=== PATIENT | female | born 1960 | race Caucasian/White ===

== ENCOUNTER 2018-05-21 12:23 | Emergency (ER) | payer OTHER ==
[~2018-05-21] VITALS: Ht 175.3 cm; Wt 81.6 kg
[~2018-05-21 12:23] MED LIST: ASPIR 8181 MG; FIBER1 GM; IRON325 MG; LORTAB 5-500 T1 EACH; MINOCIN100 MG; PROBIOTIC1 EACH; VITAMIN C500 M3
[2018-05-21] MEDS ORDERED: SODIUM CHLORIDE 0.9% 1000ML 1,000 ML IV STA (13:11)
[2018-05-21] MEDS ORDERED: SODIUM CHLORIDE 0.9% 1000ML 1,000 ML ONE (13:15)
[2018-05-21 13:28] LABS: BASOPHILS % 0.3 % (0.0-1.0); EOSINOPHILS % 0.1 % (0.0-6.0); HEMATOCRIT 46.8 % (34.2-44.1); HEMOGLOBIN 16.1 g/dL (12.0-16.0); LYMPHOCYTES # (AUTO) 0.8 (1.0-3.2); LYMPHOCYTES % 5.1 % (18.0-39.1); MEAN CORPUSCULAR HEMOGLOBIN 32.8 pg (28-32); MEAN CORPUSCULAR HGB CONC 34.4 g/dL (31-35); MEAN CORPUSCULAR VOLUME 95.3 fL (81-99); MONOCYTES # (AUTO) 0.9 (0.2-0.8); MONOCYTES % 5.7 % (4.4-11.3); NEUTROPHILS % 88.3 % (38.7-80.0); PLATELET COUNT 256 x10e3/uL (140-360); RED BLOOD COUNT 4.91 x10e6/uL (3.6-5.1); RED CELL DISTRIBUTION WIDTH 15.7 % (11.7-14.4)
[2018-05-21 13:31] LABS: INR 1.04; PROTHROMBIN TIME 12.8 seconds (11.9-14.5)
[2018-05-21 13:32] LABS: PARTIAL THROMBOPLASTIN TIME 29.2 seconds (23.8-35.5)
[2018-05-21 13:40] LABS: ALANINE AMINOTRANSFERASE 20 IU/L (0-55); ALBUMIN 3.9 g/dL (3.5-5.0); ALBUMIN/GLOBULIN RATIO 1.3 (0.8-2.0); ALKALINE PHOSPHATASE 85 IU/L (40-150); ANION GAP 18.4 mmol/L (8-16); BLOOD UREA NITROGEN 14 mg/dL (7-26); BUN/CREATININE RATIO 23 (6-25); CALCIUM 9.6 mg/dL (8.4-10.2); CARBON DIOXIDE 21 mmol/L (22-29); CHLORIDE 106 mmol/L (98-107); CREATINE KINASE 37 IU/L (29-168); EST GLOMERULAR FILTRATION RATE > 60 ML/MIN (60-); GLUCOSE 110 mg/dL (74-118); POTASSIUM 4.4 mmol/L (3.5-5.1); SODIUM 141 mmol/L (136-145)
[2018-05-21 13:50] LABS: BILIRUBIN,URINE NEGATIVE (NEGATIVE); CLARITY,URINE SL CLOUDY (CLEAR); COLOR,URINE AMBER (YELLOW); KETONES,URINE 1+ (NEGATIVE); LEUKOCYTE ESTERASE ,URINE NEGATIVE (NEGATIVE); NITRITE,URINE POSITIVE (NEGATIVE); PROTEIN,URINE DIPSTICK NEGATIVE (NEGATIVE); URINE UROBILINOGEN 0.2 mg/dL (0.2 - 1)
[2018-05-21 14:25] LABS: BACTERIA,URINE MANY /HPF
--- NOTE | 2018-05-21 14:47 | Diagnostic Imaging Report ---
EXAMINATION: CHEST SINGLE (PORTABLE) INDICATION: \S\ERMD ORDER \[id number] \S\1355 \S\Y COMPARISON: None FINDINGS: AP view TUBES and LINES: None. LUNGS: Lungs are well inflated. Lungs are clear. There is no evidence of pneumonia or pulmonary edema. PLEURA: No pleural effusion or pneumothorax. Mild bilateral apical pleural scarring. HEART AND MEDIASTINUM: The cardiomediastinal silhouette is unremarkable. BONES AND SOFT TISSUES: No acute osseous lesion. Soft tissues are unremarkable. UPPER ABDOMEN: No free air under the diaphragm. IMPRESSION: No acute thoracic abnormality. Signed by: Dr. Paula Escoto M.D. on 05/21/2018 2:44 PM
[2018-05-21 15:12] VITALS: BP 126/63
== END 2018-05-21 15:39 | disposition home or self-care (01) ==
LOC: ER 12:23
DX: K62.5 Hemorrhage of anus and rectum (principal); K64.8 Other hemorrhoids; K59.00 Constipation, unspecified; N30.91 Cystitis, unspecified with hematuria
CPT/HCPCS: 36415; 71045; 80053; 81001; 82270; 82550; 82553; 84484; 85025; 85610; 85730; 93005; 99284; J7030

== ENCOUNTER → 2018-10-14 | Day surgery (SDC) | payer OTHER ==
[~2018-10-14] MED LIST changes: +ATORVASTATIN CA10 MG PO; +CALCIUM PO; +FENTANYL CITRATE/PF 100MCG/2 ML INJ ONE; +MIDAZOLAM HCL 2 MG/2 ML VIAL ONE; +NORCO 10-325 T1 EACH PO; +PROPOFOL IV EMULSION 10 MG/ML 50 ML VIAL ONE; +VIT D PO
--- OUTSIDE RECORDS SUMMARY | 2018-10-14 05:24 | XMS REPORT | Clinical Summary ---
Author Author [facility] Organization [facility] Address Unknown Phone Unavailable Care Team Providers Care Claims Vice President Name Role Phone Asked, No Pcp PCP Unavailable Allergies No Known Allergies Medications End Date Status Medication Sig Dispensed Refills Start Date Active traMADol (ULTRAM) 50 mg Take 50 mg by 0 tablet mouth every 6 (six) hours as needed for moderate pain. 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 Last Filed Vital Signs Not on file Plan of Treatment Health Maintenance Due Date Last Done Comments CERVICAL CANCER SCREENING 1981 BREAST CANCER SCREENING 2010 COLON CANCER SCREENING 2010 SHINGLES VACCINES (1 of 2010 2) INFLUENZA VACCINE 04/07/2018 Implants Device Identifier Shelf Expiration Date Model / Serial / Lot Implanted Type Area Manufactur er 09/22/2026 [id number] / / [id number] Ceramic Acetabular Liner Hip Right: Hip LEONARD & Implanted: Qty: 1 on 05/21/2017 by Implant Jonathon POTTER Kyle F., MD [employer] 09/19/2026 [id number] / / [id number] Head Fml Cermc 36mm Biolox Delta Hip Joint Right: Hip [employer] Option - [id number] Implants Implanted: Qty: 1 on 05/21/2017 by Kendall Holt MD [id number] / / Univ Can Acet Screw 25mm - IPM Right: Hip LEONARD & [id number] IMPLANT NEPHEW Implanted: Qty: 1 on 05/21/2017 by DEVICES Kendall Zelaya MD 02/04/2023 [id number] / / [id number] Multi Hole Acetabular Shell 58mm IPM Right: Hip LEONARD & - [id number] IMPLANT NEPHEW Implanted: Qty: 1 on 05/21/2017 by DEVICES Kendall Zelaya MD 09/29/2026 [id number] / / [id number] Ref Spher Head Screw 20mm - IPM Right: Hip LEONARD & [id number] IMPLANT NEPHEW Implanted: Qty: 1 on 05/21/2017 by DEVICES Kendall Zelaya MD 08/16/2026 [id number] / / [id number] Ref Spher Head Screw 20mm - IPM Right: Hip LEONARD & [id number] IMPLANT NEPHEW Implanted: Qty: 1 on 05/21/2017 by DEVICES Kendall Zelaya MD [id number] / / Screw Actblr Head Sphrcl 15mm Orthopedic Right: Hip LEONARD AND Reflection - [id number] Trauma NEPHEW Implanted: Qty: 1 on 05/21/2017 by Implants Kendall Klein MD S 08/16/2026 [id number] / / [id number] Screw Actblr Head Sphrcl 25mm Orthopedic Right: Hip LEONARD AND Reflection - [id number] Trauma NEPHEW Implanted: Qty: 1 on 05/21/2017 by Implants Kendall Klein MD S 09/24/2026 650 [id number] / / [id number] Sleeve Head Ceramc Option Type I Orthopedic Right: Hip [employer] Taper Std - [id number] Trauma Implanted: Qty: 1 on 05/21/2017 by Kendall Iqbal MD [id number] / / Screw Actblr Head Sphrcl 50mm Spinal Right: Hip LEONARD AND Reflection - [id number] Implants NEPHEW Implanted: Qty: 1 on 05/21/2017 by Kendall Klein MD S Results Not on fileafter 10/13/2017 Insurance Payer Benefit Subscriber ID Type Phone Address Plan / Group WORKERS COMP MISC xxxxxxx Workers WORKER'S Comp COMP Advance Directives Patient has advance care planning documents, and code status on file. For more i nformation, please contact: Jake Rivas [address] [place] [address] Date Inactivated Comments Code Status Date Activated 05/23/2017 5:25 PM Full Code 05/23/2017 12:14 PM Code Status decision reached by: Patient
--- OUTSIDE RECORDS SUMMARY | 2018-10-14 05:24 | XMS REPORT ---
Author Author [facility] Address Unknown Phone Unavailable Care Team Providers Care Supervisor [place] Name Role Phone Jordan CHURCHILL Unavailable Unavailable Payers Payer Name Policy Type Policy Number Effective Date Expiration Date Problems This patient has no known problems. Allergies, Adverse Reactions, Alerts Allergy Name Allergy Type Status Severity Reaction(s) Onset Date Inactive Date Treating Clinician Comments No Known Drug Intolerances DA Active U 2009-12-05 00:00:00 Medications This patient has no known medications. Results Test Description Test Time Test Comments Text Results Atomic Results Result Comments CHEST SINGLE (PORTABLE) 2018-05-21 14:43:00 [place] [address] Patient Name: BELINDA RODRIGUEZ MR #: [id number] : 1960 Age/Sex: 57/F Req #: [id number] Adm Physician: Ordered by: ROSARIO BAHENA ROAD MAKER Report #: [id number] Location: ER Room/Bed: Procedure: [id number] DX/CHEST SINGLE (PORTABLE) Exam Date: 05/21/18 Exam Time: 1355 REPORT STATUS: Signed EXAMINATION: CHEST SINGLE (PORTABLE) INDICATION: COMPARISON: None FINDINGS: AP view TUBES and LINES: None. LUNGS: Lungs are well inflated. Lungs are clear. There is no evidence of pneumonia or pulmonary edema. PLEURA: No pleural effusion or pneumothorax. Mild bilateral apical pleural scarring. HEART AND MEDIASTINUM: The cardiomediastinal silhouette is unremarkable. BONES AND SOFT TISSUES: No acute osseous lesion. Soft tissues are unremarkable. UPPER ABDOMEN: No free air under the diaphragm. IMPRESSION: No acute thoracic abnormality. Signed by: Dr. More Jama M.D. on 05/21/2018 2:44 PM Dictated By: MORE JAMA MD [id number] Transcribed By: MORRO on 05/21/18 1444 COPY TO: ROSARIO BAHENA NP
[2018-10-14 07:45] VITALS: BP 114/54
== END | disposition home or self-care (01) ==
LOC: OR 05:18
PROVIDERS: ATTEND Internal Medicine Gastroenterology
DX: Z12.11 Encounter for screening for malignant neoplasm of colon (principal); K57.30 Diverticulosis of large intestine without perforation or abscess without bleeding; K64.8 Other hemorrhoids; Z71.3 Dietary counseling and surveillance; G47.33 Obstructive sleep apnea (adult) (pediatric); E78.5 Hyperlipidemia, unspecified; F32.9 Major depressive disorder, single episode, unspecified; F17.210 Nicotine dependence, cigarettes, uncomplicated; Z01.810 Encounter for preprocedural cardiovascular examination; Z68.1 Body mass index [BMI] 19.9 or less, adult
CPT/HCPCS: 45378; 93005; J2250; J2704